=== PATIENT | male | born 1980 | race African-American/Black ===

== ENCOUNTER 2021-03-27 13:42 | Emergency (ER) | payer SELFPAY ==
[~2021-03-27] VITALS: Ht 188 cm; Wt 109.0 kg
[2021-03-27] MEDS ORDERED: OLANZAPINE ODT 10MG ONE (13:48)
[2021-03-27] MEDS ORDERED: OLANZAPINE ODT 10MG PO PRN (14:00)
--- NOTE | 2021-03-27 14:05 | NUR ---
ALL CLOTHING REMOVED. PT PLACED IN HOSPITAL GOWN. PT SEMI-COOPERATIVE. PT JUMPY AND ANXIOUS AND LOOKING OVER HIS SHOULDER. PT BELONGINGS BAGGED, TAGGED AND PLACED IN CLOTHING LOCKER. PT MEDICATED FOR ANXIETY, LIGHTS DIMMED FOR COMFORT.
--- NOTE | 2021-03-27 15:26 | NUR ---
pt resting calmly in bed, laying on left side. VSS. SEE CHARTED.
--- NOTE | 2021-03-27 16:13 | NUR ---
pt continues to rest in bed with eyes closed. no stated needs at this time.
--- NOTE | 2021-03-27 17:02 | NUR ---
pt resting calmly in bed at this time. will continue to monitor.
--- NOTE | 2021-03-27 18:20 | NUR ---
pt resting calmly in bed with eyes closed. no stated needs currently.
--- NOTE | 2021-03-27 19:23 | NUR ---
ASSUMED CARE OF PATIENT. REPORT GIVEN FROM STEVE BUTTERFIELD. VS STABLE. PT RESTING IN ROOM. NO ACUTE DISTRESS NOTED. WILL CONTINUE TO MONITOR.
[2021-03-27 19:24] VITALS: BP 118/78
--- NOTE | 2021-03-27 19:29 | NUR ---
REPORT GIVEN TO STEVE BOND FOR BREAK
--- NOTE | 2021-03-27 20:33 | NUR ---
PT AWAKE AND ALERT. PT DENIES SI, HI. PT WALKED TO BATHROOM. VS STABLE. NO ACUTE DISTRESS NOTED. WILL CONTINUE TO MONITOR.
--- NOTE | 2021-03-27 20:56 | NUR ---
PT GIVEN FOOD AND WATER. PT SEEN BY DR GARCIA. PT TO BE DISCHARGED.
--- NOTE | 2021-03-27 22:08 | NUR ---
PT EATING A SANDWICH IN ROOM. VS STABLE. PT IS A&O X4. PT TO BE DISCHARGED PER DR GARCIA.
== END 2021-03-27 22:32 | disposition home or self-care (01) ==
LOC: ED 22:00
DX: R44.3 Hallucinations, unspecified (principal); F15.122 Other stimulant abuse with intoxication with perceptual disturbance; Z72.9 Problem related to lifestyle, unspecified
CPT/HCPCS: 99285